=== PATIENT | male | born 1985 | race Caucasian/White ===

== ENCOUNTER 2019-07-21 13:47 | Emergency (ER) | payer OTHER ==
[~2019-07-21] VITALS: Ht 180.3 cm; Wt 95.3 kg
[2019-07-21] MEDS: IBUPROFEN 600 MG TAB PO STA (14:23)
[2019-07-21 15:02] LABS: STREPTOCOCCUS GRP A ANTIGEN POSITIVE (NEGATIVE)
[2019-07-21] MEDS: IBUPROFEN 600 MG TAB PO ONE (15:05)
[2019-07-21 15:23] LABS: INFLUENZAE A&B ANTIGEN (RAPID) NEGATIVE (NEGATIVE)
[2019-07-21] MEDS: DEXAMETHASONE SOD PHOS 10 MG/1 ML VIAL IM ONE (15:35)
== END 2019-07-21 15:46 | disposition home or self-care (01) ==
LOC: ER 13:47
DX: R50.9 Fever, unspecified (principal); J02.0 Streptococcal pharyngitis
CPT/HCPCS: 83518; 87400; 99283; J1100